=== PATIENT | female | born 1980 | race American Indian/Alaskan Native ===

== ENCOUNTER 2019-02-12 15:31 | Emergency (ER) | payer MEDICAID ==
[2019-02-12 16:52] VITALS: BP 139/83
--- NOTE | 2019-02-12 16:53 | Emergency Department Report ---
Chief Complaint: Dizziness Stated Complaint: SINUS/DIZZINESS Time Seen by Provider: 02/12/19 16:48 - HPI History of Present Illness: This is a 38 y.o. female that presents to the ER with dizziness x 3 days. Patient states she work at a [employer] and when she stood up she was lightheaded. Patient states she feel weak. PMH anemia, depression, and anxiety. Current smoker. - Exam Vital Signs: Vital Signs 02/12/19 16:50 Temperature 98.2 F Pulse Rate 102 H Respiratory 16 Rate Blood Pressure 139/83 O2 Sat by Pulse 100 Oximetry MSE screening note: Focused history and physical exam performed. Due to findings the following was ordered: Labs ACC for further evaluation. ED Disposition for MSE Condition: Stable
[2019-02-12 17:11] LABS: Basophils % (Auto) 0.3 % (0.0-1.8); Eosinophils # (Auto) 0.1 K/mm3 (0.0-0.4); Eosinophils % (Auto) 1.1 % (0.0-4.3); Hematocrit 37.2 % (30.3-42.9); Hemoglobin 11.9 gm/dl (10.1-14.3); Lymphocytes # (Auto) 2.5 K/mm3 (1.2-5.4); Lymphocytes % (Auto) 35.3 % (13.4-35.0); Mean Corpuscular HGB Conc 32 % (30-34); Mean Corpuscular Volume 84 fl (79-97); Monocytes # (Auto) 0.7 K/mm3 (0.0-0.8); Monocytes % (Auto) 9.4 % (0.0-7.3); Platelet Count 187 K/mm3 (140-440); Red Blood Count 4.41 M/mm3 (3.65-5.03); Red Cell Distribution Width 18.6 % (13.2-15.2)
[2019-02-12 17:26] LABS: Alanine Aminotransferase 9 units/L (7-56); Albumin 3.3 g/dL (3.9-5); BUN/Creatinine Ratio 13; Blood Urea Nitrogen 9 mg/dL (7-17); Calcium 9.6 mg/dL (8.4-10.2); Hemolysis Index 4
--- NOTE | 2019-02-12 19:51 | Emergency Department Report ---
ED Dizziness HPI - General Chief Complaint: Dizziness Stated Complaint: SINUS/DIZZINESS Time Seen by Provider: 02/12/19 16:48 Source: patient Mode of arrival: Ambulatory Limitations: No Limitations - History of Present Illness Initial Comments: Pt is a 38 yo female who presents with dizziness that began 3 days ago. She states she first noticed it when she was at work and bent down to get something and when she stool back up she had dizziness. She states she only experiences it with bending over or fast head movements. She does have seasonal allergies and has not been taking any medication. She has no dizziness currently. She states she did have diarrhea yesterday but has been drinking plenty of fluids. She denies any urinary sx, HERNANDEZ, vision changes, gait disturbance, speech disturbance, numbness, weakness, or any other sx. - Related Data Previous Rx's Medication Instructions Recorded Last Taken Type Cetirizine HCl [ZyrTEC] 10 mg PO QHS #30 capsule 02/12/19 Unknown Rx Fluticasone [Flonase] 1 spray NS QDAY #1 bottle 02/12/19 Unknown Rx Nitrofurantoin Anson/M-Cryst 100 mg PO BID 5 Days #10 capsule 02/12/19 Unknown Rx [Macrobid CAP] Allergies Allergy/AdvReac Type Severity Reaction Status Date / Time Penicillins Allergy Swelling Verified 02/12/19 15:33 ED Review of Systems ROS: Stated complaint: SINUS/DIZZINESS Other details as noted in HPI Comment: All other systems reviewed and negative ED Past Medical Hx - Past Medical History Previous Medical History?: Yes Hx Psychiatric Treatment: Yes (Anxiety) - Surgical History Past Surgical History?: No - Social History Smoking Status: Current Every Day Smoker Substance Use Type: None - Medications Home Medications: Home Medications Medication Instructions Recorded Confirmed Last Taken Type Cetirizine HCl [ZyrTEC] 10 mg PO QHS #30 capsule 02/12/19 Unknown Rx Fluticasone [Flonase] 1 spray NS QDAY #1 bottle 02/12/19 Unknown Rx Nitrofurantoin Anson/M-Cryst 100 mg PO BID 5 Days #10 capsule 02/12/19 Unknown Rx [Macrobid CAP] ED Physical Exam - General Limitations: No Limitations General appearance: alert, in no apparent distress - Head Head exam: Present: atraumatic, normocephalic - Eye Eye exam: Present: normal appearance, PERRL, EOMI. Absent: scleral icterus, conjunctival injection, nystagmus - ENT ENT exam: Present: other (pale, boggy nasal turbinates bilaterally, with clear nasal drainge) - Neck Neck exam: Present: normal inspection, full ROM. Absent: tenderness, meningismus - Respiratory Respiratory exam: Present: normal lung sounds bilaterally. Absent: respiratory distress, wheezes, rales, rhonchi, stridor, chest wall tenderness, accessory muscle use, decreased breath sounds, prolonged expiratory - Cardiovascular Cardiovascular Exam: Present: regular rate, normal rhythm, normal heart sounds. Absent: systolic murmur, diastolic murmur, rubs, gallop - Neurological Exam Neurological exam: Present: alert, oriented X3, CN II-XII intact, normal gait, other (normal finger to nose, normal heel to pastrana, 5/5 strength in the BUE/BLE, normal sensation, no neuro deficit). Absent: motor sensory deficit - Psychiatric Psychiatric exam: Present: normal affect, normal mood - Skin Skin exam: Present: warm, dry, intact ED Course Vital Signs 02/12/19 16:50 Temperature 98.2 F Pulse Rate 102 H Respiratory 16 Rate Blood Pressure 139/83 O2 Sat by Pulse 100 Oximetry ED Medical Decision Making - Lab Data Result diagrams: 02/12/19 17:01 02/12/19 17:01 - Medical Decision Making Pt is a 38 yo female who presents with dizziness that began 3 days ago. She states she first noticed it when she was at work and bent down to get something and when she stool back up she had dizziness. She states she only experiences it with bending over or fast head movements. She does have seasonal allergies and has not been taking any medication. She has no dizziness currently. She states she did have diarrhea yesterday but has been drinking plenty of fluids. She den ies any urinary sx, HERNANDEZ, vision changes, gait disturbance, speech disturbance, numbness, weakness, or any other sx. VSS. normal orthostatic vital signs. No nystagmus or neuro deficit on examination. Pt examination consistent with seasonal allergies, will give zyrtec and flonase. labs are stable. UA shows 100 WBCs will give pt tx for a UTI. Advised to please see her primary care doctor in the next 2-3 days. take all medication as prescribed. Discussed with pt to please drink plenty of water. Advised pt to return to the emergency room for any new or worsening symptoms. - Differential Diagnosis vertigo, sinusitis, viral syndrome, URI, seasonal allergies Critical care attestation.: If time is entered above; I have spent that time in minutes in the direct care of this critically ill patient, excluding procedure time. ED Disposition Clinical Impression: Seasonal allergies, Dizziness UTI (urinary tract infection) Qualifiers: Urinary tract infection type: acute cystitis Hematuria presence: without hematuria Qualified Code(s): N30.00 - Acute cystitis without hematuria Disposition: - TO HOME OR SELFCARE Is pt being admited?: No Does the pt Need Aspirin: No Condition: Stable Instructions: Urinary Tract Infection in Women (ED), Allergies (ED), Dizziness (ED) Additional Instructions: Please follow up with a primary care doctor in the next 2-3 days. Take all medication as prescribed. Return to the emergency room for any new or worsening symptoms. Prescriptions: Cetirizine HCl [ZyrTEC] 10 mg PO QHS #30 capsule Fluticasone [Flonase] 1 spray NS QDAY #1 bottle Nitrofurantoin Anson/M-Cryst [Macrobid CAP] 100 mg PO BID 5 Days #10 capsule Referrals: [facility] [Provider Group] - 3-5 Days Forms: Work/School Release Form(ED) Time of Disposition: 20:49 Print Language: TELUGU
[2019-02-12 20:33] LABS: Bacteria,Urine 3+ /HPF (Negative); Bilirubin,Urine NEG (Negative); Blood,Urine MOD (Negative); Color,Urine Yellow (Yellow); Mucus,Urine 2+ /HPF; Urobilinogen,Urine < 2.0 mg/dL (<2.0)
[2019-02-12 20:36] LABS: HCG Qualitative,Urine Negative (Negative)
== END 2019-02-12 20:57 | disposition home or self-care (01) ==
LOC: ED 15:31
DX: N39.0 Urinary tract infection, site not specified (principal); J30.2 Other seasonal allergic rhinitis; R42 Dizziness and giddiness; F41.9 Anxiety disorder, unspecified; F17.200 Nicotine dependence, unspecified, uncomplicated; Z88.0 Allergy status to penicillin
CPT/HCPCS: 36415; 80053; 81001; 81025; 85025